=== PATIENT | female | born 1985 | race Caucasian/White ===

== ENCOUNTER 2017-07-21 06:01 | Day surgery (SDC) | payer BC ==
[2017-07-20 08:50] VITALS: BMI 34.9
[2017-07-21] MEDS ORDERED: Bupivacaine/Epinephrine 0.25% 30 ML VIAL ONE (06:18)
[2017-07-21] MEDS ORDERED: Sodium Chloride 0.9% 10 ML ONE (06:18)
[2017-07-21] MEDS ORDERED: Bacitracin Zinc Ointment 30 gm TUBE ONE (06:18)
[2017-07-21] MEDS ORDERED: Fentanyl 100 MCG/2 ML VIAL ONE ×4 (06:28→11:45)
[2017-07-21] MEDS ORDERED: Midazolam HCl 2 mg/2 ml Vial ONE ×2 (06:28→07:02)
[2017-07-21 06:49] LABS: #Basophils 0.1 thou/uL (0.0-0.2); #Eosinphils 0.2 thou/uL (0.0-0.7); #Lymphocytes 2.4 thou/uL (1.20-3.40); #Monocytes 0.6 thou/uL (0.11-0.59); #Neutrophils 7.2 thou/uL (1.40-6.50); %Basophils 0.7 % (0.0-1.0); %Lymphocytes 23.1 % (21.0-51.0); %Monocytes 5.9 % (0.0-10.0); %Neutrophils 68.4 % (42.0-75.0); Hemoglobin 13.4 g/dL (12.0-16.0); Mean Corpuscular HGB CONC 33.4 g/dL (32.0-36.0); Mean Corpuscular Hemoglobin 29.3 pg (27.0-31.0); Mean Corpuscular Volume 87.7 fl (81.0-99.0); Mean Platelet Volume 5.7 fL (7.4-10.4); Platelet Count 509 thou/uL (130-400); RBC Distribution Width 12.1 % (11.5-14.5); Red Blood Cell (RBC) Count 4.58 mill/uL (4.20-5.40); White Blood Cell (WBC) Count 10.5 thou/uL (4.8-10.8)
[2017-07-21 06:51] LABS: BHCG - Serum Negative (NEGATIVE)
[2017-07-21 06:52] LABS: Pregs Control Background? CLEAR/WHITE (CLR/WHITE); Pregs Control Bar Appear? YES (CONTROL BAR)
[2017-07-21 07:04] LABS: Anion Gap 12 mmol/L (10-20); BUN (Urea Nitrogen) 10 mg/dL (7.0-18.7); Calc. Creatinine Clearance 168 mL/min (70-130); Calcium 9.3 mg/dL (7.8-10.44); Carbon Dioxide 25 mmol/L (22-29); Chloride 104 mmol/L (98-107); Estimated GFR-MDRD Greater than 90; Glucose 99 mg/dL (70-105); Potassium 3.9 mmol/L (3.5-5.1); Sodium 137 mmol/L (136-145)
[2017-07-21] MEDS ORDERED: Clindamycin/D5W 600 mg/50 ml Premix Bag ONE (07:08)
[2017-07-21] MEDS ORDERED: Ondansetron HCl/PF 4 MG/2 ML Vial IVP PRN (07:33)
[2017-07-21] MEDS ORDERED: Ropivacaine HCl/PF 1,100 MG in Sodium Chloride 0.9% 440 ML NERVE BLCK SCH (07:33)
[2017-07-21] MEDS ORDERED: Promethazine HCl 25 MG/ML VIAL IM PRN (07:33)
[2017-07-21] MEDS ORDERED: traMADol HCl 50 MG TAB PO PRN ×2 (07:33)
[2017-07-21] MEDS ORDERED: Zolpidem Tartrate 5 MG TAB PO PRN (07:33)
[2017-07-21] MEDS ORDERED: HYDROcodone/Acetaminophen 5/325 mg Tablet PO PRN ×2 (07:33)
[2017-07-21] MEDS ORDERED: Fentanyl 100 MCG/2 ML VIAL IV PRN (07:34)
[2017-07-21] MEDS ORDERED: Ropivacaine 0.5% HCl/PF (150 MG/30 ML VIAL) ONE ×2 (09:55→13:47)
[2017-07-21] MEDS ORDERED: Ketorolac Tromethamine 30 MG/ML VIAL ONE ×2 (11:19→14:02)
[2017-07-21] MEDS ORDERED: Ketorolac Tromethamine 30 MG/ML VIAL IVP SCH (12:00)
--- NOTE | 2017-07-21 12:09 | RAD ---
INTRAOPERATIVE FLUOROSCOPY RIGHT WRIST: Date: 07/21/17 HISTORY: Scaphoid excision. Arthrodesis of right wrist. COMPARISON: None. TECHNIQUE: Intraoperative fluoroscopy provided for Dr. Moody. Five images submitted for interpretation. FINDINGS: There is interval removal of a single screw traversing the distal carpal row and placement of four se parate screws over the carpal bones, as well as a K wire. IMPRESSION: Fluoroscopy as above. POS: [facility]
[2017-07-21] MEDS ORDERED: Ropivacaine 0.2% HCl/PF (40 MG/20 ML VIAL) ONE (13:47)
--- NOTE | 2017-07-21 13:54 | OP ---
DATE OF PROCEDURE: 07/21/2017 PREOPERATIVE DIAGNOSES: 1. 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 2. Moderate scaphoid capsulitis. 3. Severe capital lunate osteoarthritis with narrowing and over 70% joint surface completely eroded with a large hole and even an anchor in the capitate. A moderate size hole in the lunate with bone t o bone at these sites. PROCEDURE PERFORMED: 1. Removal of deep implant, the anchor in the capitate. 2. Scaphoid excision. 3. C-arm supervision. 4. Four corner arthrodesis with bank to bone graft major at the wrist. SURGEON: Dr. Jose Moody HISTORY: The patient had the procedure for scapholunate reconstruction over 1 year ago which did not give adequate relief and she developed arthritis, continued to have more dorsal tilt and instability and widening of the scapholunate interval which is painful. PROCEDURE FINDINGS: 1. The arthritis described above which is severe osteoarthritis in the scaphoradial, ____, capital l unate joint, but none at the lunate radius joint. 2. Moderate hamate, triquetral, reveal triquetral chondral changes with marked dorsal intercalated i nstability. Postoperatively, the reduction of the carpus gave only approximately 12 degree capital l unate angle and the scaphoid was gone. DESCRIPTION OF PROCEDURE: After general endotracheal anesthesia the limb was prepped and draped. A timeout done appropriately and the patient already had a preoperative block with an indwelling pain p ump line. Her previous 3 cm incision was extended 1.5 cm distal and 1 cm proximal to expose the extensor mechan ism into the retinaculum. We found the pollicis longus, and protect the superficial ulnar and superf icial radial nerve with the dissection, and then released the retinaculum in a fashion similar to bef fidencio. Underneath we could then see after retracting the interval between the third and fourth dorsal compartment, that there was Ethibond sutures over the joint capsule wrist, so we removed these, made an enterotomy along the same plane, and then dissected down until we could see scaphoid lunate, capit ate, triquetrum and hamate. Here, we saw the severe osteoarthritis of the scaphoid capitate, radioscaphoid, and even more severe at the capital lunate joint. The other joints were all with only minimal involvement, none at trique tral joint with the ulnar or TFCC. We then placed a wire in the scaphoid, identified it on the C-arm and then excised it. There was onl y minimal bone graft that could be harvested from here and using the criteria making it purely so we then brought also cancellous chips from cadaver and then crushed them. We used a combination o f curet, rongeur and a bur, 2 mm acorn type to denude the chondral surfaces after removing the scapho id of the capitate side of the capital lunate joint, lunate side of the capital lunate joint, the ham ate sides of the triquetrum hamate as well as the hamate, capitate surface and finally we released th e dorsal portion of the main triquetral ligament and did the same chondral jake down to subchondral b one, which was decorticated completely at all these sites. Once this was done, then placed bone emma t from the scaphoid in the capital lunate area and remainder portion had scant bone from the cadaver as it was not enough to do all the fusion with this patient's own bone. After this, we then placed o ur wires, reduced the previous 85 degrees dorsal systems tester stability to approximately 10 degrees in the capital lunate angle and then held this with wires. We also held the hamate triquetral with wire s and then placed a screw in the center mass of these two articulations using the [employer] 3-0 cannula deandre screw without compression. Once this was done, we placed additional wire in the capital lunate j oint, then dissected laterally to protect all superficial ulnar nerve branches and made a small relea se in the extensor carpi ulnaris sheath, distal portion of triquetrum, then, we placed the guidewire in the capital hamate articulation and a guidewire in the triquetrum lunate and then placed appropria te two 3-0 cannulated screws as had been done in the hamate to the lunate and the capitate to the raj ate. The screws had excellent purchase, we placed slightly more bone graft in each articular, now we have compressed the joint surfaces, had excellent fill of the joint surfaces, had excellent , n o screw was protruding into any joint or sagittal plane structures. We released the tourniquet at 12 5 minutes, obtained hemostasis, closed part of the extensor rojas over the extensor carpal ulnaris wit h a 2-0 Vicryl, used a #1 Ethibond to close the primary joint capsule. We had made a flap that was r adial on the base back to the radial side, closed with the same 2-0 Vicryl and the retinaculum includ ing portions of extensor pollicis longus retinaculum and then subcutaneous closure with hemostasis wi th a running 3-0 Monocryl and the skin reapproximated with 4-0 nylon interrupted mattress pattern. B ulky dressing and sugar tong splint was applied. The patient left the operating room without evidenc e of anesthetic complication or operative complication.
[2017-07-21] MEDS ORDERED: Lidocaine 1% PF 5 ML VIAL ONE (14:02)
[2017-07-21] MEDS ORDERED: PROPOFOL 200 MG/20 ML VIAL ONE (14:02)
== END 2017-07-21 13:00 | disposition home or self-care (01) ==
LOC: SDC 06:01
PROVIDERS: ATTEND Orthopaedic Surgery Hand Surgery
PROC: 0RPN0JZ Removal of Synthetic Substitute from Right Wrist Joint, Open Approach (ICD-10-PCS; principal; 2017-07-21)
PROC: 0RGN07Z Fusion of Right Wrist Joint with Autologous Tissue Substitute, Open Approach (ICD-10-PCS; principal; 2017-07-21)
PROC: 0RGN04Z Fusion of Right Wrist Joint with Internal Fixation Device, Open Approach (ICD-10-PCS; principal; 2017-07-21)
DX: M19.131 Post-traumatic osteoarthritis, right wrist (principal); M77.9 Enthesopathy, unspecified; Z88.0 Allergy status to penicillin; Z79.899 Other long term (current) drug therapy
CPT/HCPCS: 36415; 76001; 80048; 84703; 85025; A4216; C1713; J1885; J2001; J2250; J2704; J2795; J3010; J3490

== ENCOUNTER 2018-06-11 16:42 | Inpatient (IN) | payer BC ==
[2018-06-11] MEDS ORDERED: Promethazine HCl 25 MG/ML VIAL IM PRN (17:12)
[2018-06-11] MEDS ORDERED: Ondansetron PF 4 MG/2 ML Vial IVP PRN (17:12)
[2018-06-11] MEDS ORDERED: Lactated Ringer's 1,000 ML IV SCH (17:15)
[2018-06-11] MEDS ORDERED: Betamet Acet/Betamet Na Ph 30 MG/5 ML VIAL IM SCH (17:30)
[2018-06-11 17:34] VITALS: BP 172/97; TEMP 97.6; BMI 43.7
[2018-06-11] MEDS ORDERED: Labetalol HCl 100 MG/20 ML VIAL SLOW IVP PRN (17:43)
[2018-06-11] MEDS ORDERED: Magnesium Sulfate 20 gm/500 ml 20 GM/500 ML BAG ONE (17:47)
[2018-06-11 18:24] LABS: Hemoglobin 11.7 g/dL (12.0-16.0); Mean Corpuscular HGB CONC 32.9 g/dL (32.0-36.0); Mean Corpuscular Volume 88.2 fL (78.0-98.0); Mean Platelet Volume 7.3 fL (7.4-10.4); Platelet Count 385 thou/uL (130-400); RBC Distribution Width 13.9 % (11.5-14.5); Red Blood Cell (RBC) Count 4.02 mill/uL (4.20-5.40); White Blood Cell (WBC) Count 15.4 thou/uL (4.8-10.8)
[2018-06-11] MEDS ORDERED: hydrALAZINE 20 MG/ML VIAL SLOW IVP PRN (18:28)
[2018-06-11] MEDS ORDERED: hydrALAZINE 20 MG/ML VIAL ONE (18:28)
[2018-06-11] MEDS ORDERED: Labetalol HCl 100 MG/20 ML VIAL ONE (18:29)
[2018-06-11] MEDS ORDERED: Calcium Gluc 4.6 MEQ/10 ML (100 MG/ML) SLOW IVP PRN (18:41)
[2018-06-11] MEDS ORDERED: Magnesium Sulfate 20 gm/500 ml 20 GM/500 ML BAG IVPB SCH (18:45)
[2018-06-11] MEDS ORDERED: Magnesium Sulfate 20 GM/WATER 500 ML BAG IVPB SCH (18:45)
[2018-06-11 18:46] LABS: ALT (SGPT) 18 U/L (8-55); AST (SGOT) 16 U/L (5-34); Alkaline Phosphatase 129 U/L (40-150); Anion Gap 14 mmol/L (10-20); BUN (Urea Nitrogen) 13 mg/dL (7.0-18.7); Bilirubin, Total Less than 0.2 mg/dL (0.2-1.2); Calc. Creatinine Clearance 246 mL/min (70-130); Carbon Dioxide 21 mmol/L (22-29); Chloride 104 mmol/L (98-107); Estimated GFR-MDRD Greater than 90; Globulin 2.9 g/dL (2.4-3.5); Glucose 99 mg/dL (70-105); Protein, Total 5.9 g/dL (6.0-8.3); Sodium 135 mmol/L (136-145)
[2018-06-11 19:02] LABS: Syphilis Antibody Nonreactive (Nonreactive); Syphilis Antibody Index 0.06 S/CO (<1.00 Non-Reactive)
[2018-06-11 19:03] LABS: HBSAg Index 0.36 S/CO (0-0.99); Hep B Surf Ag Non-Reactive S/CO (NonReactive)
[2018-06-11 19:05] LABS: Creatinine, Urine Less than 20.00 mg/dL (47-110); Protein, Urine Random Quant Less than 10 mg/dL (1-14)
--- NOTE | 2018-06-14 05:36 | HP ---
She was initially seen at [facility] at 1545 hours. CHIEF COMPLAINT: Routine obstetric visit. HISTORY OF PRESENT ILLNESS: Cindi Huerta is a 33-year-old, G1, P0, at 34 weeks and 3 days, who is being seen in the office today for her routine obstetric visit. She had an ultrasound scheduled for rate of growth, for size greater than date as well as advanced maternal age and obesity and excessive weight gain. Her blood pressure at the time of the visit was 140/90. She reports having slight headaches that were relieved by rest. She also reports excessive swelling in her feet and hands. Baby is moving normally. She denies leaking of fluid or vaginal bleeding. She does report some occasional [place] contractions, which are not painful. PAST MEDICAL HISTORY: Negative. FAMILY HISTORY: Significant for hypertensive disorder in her mother. SOCIAL HISTORY: Negative. She denies smoking, tobacco use, alcohol, illicit drug use. PHYSICAL EXAMINATION: VITAL SIGNS: On admission, the patient's blood pressure was 183/110 followed by repeat blood pressure of 172/97. The temperature was 97.6. Pulse 98. Respirations 18. On room air. GENERAL APPEARANCE: No acute distress. HEENT: Head was atraumatic. No nasal discharge. No mouth or throat lesions. RESPIRATORY: Unlabored. ABDOMEN: Gravid female. EXTREMITIES: +3 edema bilaterally. DTRs were brisk, +3, 2 beats of clonus. NEUROLOGIC: She was alert and oriented x3. MEDICAL COURSE: Cindi Huerta is a 33-year-old, G1, P0, who is directly admitted from the office at 34 weeks and 3 days for rule out preeclampsia based on an ultrasound in the office as well as elevated blood pressure in the office. Upon arrival to Labor and Delivery unit, she was noted to have severe range blood pressure, clonus, and brisk reflexes. Her labs were drawn and IV was started and magnesium sulfate was given in a loading dose . She was also given 20 mg of IV labetalol push to lower her blood pressure. Other significant findings were an ultrasound completed at [facility] with the infant measuring at 2620 g, in the 8.8 percentile for growth. Her BPP score was 6/8. GINA was 5.31 cm. Based on the severity of the patient, Celestone was administered one dose as the patient is 34 weeks and 3 days' gestation. PLAN OF CARE: Direct admission to Labor and Delivery at [facility]. Blood pressure and vital signs every 15 minutes. IV labetalol for severe range blood pressure of 160/110. magnesium sulfate loading dose started. Antibiotics for GBS prophylaxis during should be initiated upon arrival to the transferring hospital. Transfer center notified, necessity to transfer patient to [facility] due to NICU diversion and anticipated need for NICU services as the patient is 34 weeks and 3 days of gestation. I have consulted with both Dr. Phillips, my supervising physician, as well as Dr. Brit Lizarraga who will be hospitalist who is currently at [facility]. Job ID: [id number]
== END 2018-06-11 20:50 | disposition short-term general hospital (02) | DRG 833 ==
LOC: L&D 16:42
PROVIDERS: ADMIT Student in an Organized Health Care Education/Training Program; ATTEND Student in an Organized Health Care Education/Training Program
DX: O16.3 Unspecified maternal hypertension, third trimester (principal); Z3A.34 34 weeks gestation of pregnancy; O09.523 Supervision of elderly multigravida, third trimester
CPT/HCPCS: 36415; 51702; 80053; 81003; 82570; 84156; 85027; 86780; 86850; 86900; 86901; 87340; J0360; J0702; J3475

== ENCOUNTER 2019-12-04 19:00 | Outpatient (CLI) | payer BC | END 2019-12-04 19:01 | disposition home or self-care (01) | LOC: SLEEPLAB 19:00 | PROVIDERS: ATTEND Physician Assistant | DX: G47.33 Obstructive sleep apnea (adult) (pediatric) (principal); R53.83 Other fatigue; R06.83 Snoring; E66.9 Obesity, unspecified; G47.10 Hypersomnia, unspecified; Z68.35 Body mass index [BMI] 35.0-35.9, adult | CPT/HCPCS: 95811 ==